=== PATIENT | female | born 2000 | race Caucasian/White ===

== ENCOUNTER → 2020-11-16 | Day surgery (SDC) | payer OTHER ==
[~2020-11-16] MED LIST: DOCUSATE SODIU100 MG PO; HYDROCODON-ACE1 EAC4 PO; IBU600 MG PO; IBUPROFEN600 MG PO; STOOL SOFTENER100 MG PO
[2020-11-16 07:39] LABS: HEMOGLOBIN 14.9 gm/dl (12.3-15.3); RED BLOOD COUNT 4.75 M/UL (4.00-5.10); WHITE BLOOD COUNT 8.4 K/UL (4.5-11.0)
== END | disposition home or self-care (01) ==
LOC: OR 06:54
PROVIDERS: Obstetrics & Gynecology
DX: O02.1 Missed abortion (principal); Z29.13 Encounter for prophylactic Rho(D) immune globulin; Z87.891 Personal history of nicotine dependence
CPT/HCPCS: 81001; 85025; 86850; 86900; 86901; J1885; J2001; J2250; J2704; J2790; J2795; J3010; J7120

== ENCOUNTER 2022-02-05 09:46 | Outpatient (CLI) | payer OTHER | END 2022-02-05 12:35 | disposition home or self-care (01) | LOC: GENOP 09:46 | DX: O99.891 Other specified diseases and conditions complicating pregnancy (principal); O13.3 Gestational [pregnancy-induced] hypertension without significant proteinuria, third trimester; O23.43 Unspecified infection of urinary tract in pregnancy, third trimester; O99.353 Diseases of the nervous system complicating pregnancy, third trimester; O99.333 Smoking (tobacco) complicating pregnancy, third trimester; F17.210 Nicotine dependence, cigarettes, uncomplicated; G43.909 Migraine, unspecified, not intractable, without status migrainosus; R10.9 Unspecified abdominal pain; N39.0 Urinary tract infection, site not specified; R10.2 Pelvic and perineal pain; Z3A.34 34 weeks gestation of pregnancy | CPT/HCPCS: 81001; G0463 ==